=== PATIENT | female | born 2000 | race Caucasian/White ===

== ENCOUNTER 2018-07-23 22:16 | Emergency (ER) | payer MEDICAID ==
[2018-07-23] MEDS ORDERED: NORMAL SALINE 1000 ML 1,000 ML IV ONE ×2 (22:47→23:32)
--- NOTE | 2018-07-23 22:53 | ER Document Report ---
ED General - General Chief Complaint: Vaginal Bleeding Stated Complaint: HEAVY VAGINAL BLEEDING Time Seen by Provider: 07/23/18 22:47 Notes: Patient is a 18-year-old female presents with complaint of heavy vaginal bleeding. At the end of June she had a positive test. She says about 2 weeks ago she had some bleeding. She said that stopped. Since then she has had some mild intermittent bleeding. She never saw an OB doctor. She assumed that she had a miscarriage. Today around 2 PM start having heavy bleeding it became much worse and start having some crampy pain. She then started to feel very lightheaded and dizzy and passed out. Upon arrival in triage she is tachycardic and hypotensive. She denies any chronic medical problems. No other complaints at this time. TRAVEL OUTSIDE OF THE [place] IN LAST 30 DAYS: No - Related Data Allergies/Adverse Reactions: No Known Allergies Allergy (Verified 07/24/18 03:18) Past Medical History - Social History Smoking Status: Never Smoker Frequency of alcohol use: None Drug Abuse: None Family History: Reviewed & Not Pertinent Past Surgical History: Reports: Hx Orthopedic Surgery - L foot sx - Immunizations Immunizations up to date: Yes Review of Systems - Review of Systems Notes: My Normal Review Basic REVIEW OF SYSTEMS: CONSTITUTIONAL : Denies fever, chills, or sweats. Denies recent illness. GASTROINTESTINAL: Lower abdominal cramping.. Denies nausea, vomiting, or diarrhea. FEMALE GENITOURINARY: Vaginal bleeding. Recent positive test MUSCULOSKELETAL: Denies neck or back pain or joint pain or swelling. SKIN: Denies rash or skin lesions. HEMATOLOGIC : Denies easy bruising or bleeding. NEUROLOGICAL: Syncopal episode. Denies headache. Denies weakness or paralysis or loss of use of either side. Denies problems with gait or speech. Denies sensory or motor loss. ALL OTHER SYSTEMS REVIEWED AND NEGATIVE. Physical Exam - Vital signs Vitals: Resp BP Pulse Ox 15 108/72 100 07/23/18 22:40 07/23/18 22:40 07/23/18 22:40 - Notes Notes: General Appearance: Well nourished, alert, cooperative, no acute distress, no obvious discomfort. Slightly pale appearing. Vitals: reviewed, See vital signs table. Eyes: PERRL, EOMI, Conjuctiva clear Mouth: No decreasd moisture Lungs: No wheezing, No rales, No rhonci, No accessory muscle use, good air exchange bilaterally. Heart: Tachycardic rate, Regular rythm, No murmur, no rub Abdomen: Normal BS, soft, No rigidity, No abdominal tenderness, No guarding, no rebound, no abdominal masses, no organomegaly Pelvic exam: Pelvic exam performed with ABIMAEL Lechuga at bedside. Patient had moderate amount of blood in vaginal vault. No clots in cervical office. Cervical os appears open. Extremities: strength 5/5 in all extremities, good pulses in all extremities, no swelling or tenderness in the extremities, no edema. Skin: warm, dry, appropriate color, no rash Neuro: speech clear, oriented x 3, normal affect, responds appropriately to questions. Course - Re-evaluation Re-evalutation: 07/23/18 22:57 We immediately started IV fluid bolus. Patient's had about 250 mL's in her heart rate is already improved and her blood pressure is normalized. She still feels weak. I did do a quick bedside FAST exam. I see no evidence of free fluid in the abdomen. Pelvic exam showed moderate blood which was able to suction. I do not see any further bleeding after white blood was in the vaginal vault was suctioned out. I have personally requested to do a portable bedside ultrasound. I have ordered hCG. I have ordered type and screen for blood in case she does require blood transfusion. 07/23/18 23:31 On reevaluation patient is feeling some better. Still some slight tachycardia. She says that her bleeding appears to have stopped now but she feels as if she might start bleeding again. Ultrasound was just performed and waiting for the results of this. I will give her another liter of fluids. 07/24/18 00:45 On reevaluation patient continues to feel better. She has not had any further vaginal bleeding. I will repeat hCG just to make sure that her hemoglobin is not dropping of a rapid rate. Vital signs remained stable. Current heart rate is 87. Blood pressure is 105/64. 07/24/18 01:54 Patient continues to feel improved. She continues to 90 for the pain. She denies any further bleeding. I did do repeat hemoglobin because is concerned t hat the initial hemoglobin was not really healthcare sales representative of where her level would be based on the rapid onset of heavy bleeding that she had today. Her repeat hemoglobin is low. I will give her 2 units of blood. Currently she clinically looks well. Blood pressure is systolically in the 90s. Heart rate is right around 100. 07/24/18 06:19 I did discuss the case with Dr. Rosado, director of sports medicine municipal bond trader. He said that if the patient remains stable she can be discharged and then to have her go [facility]. He said she does not need an appointment and said to just have her show up so that they can examine her and evaluate her. 07/24/18 06:48 Patient is currently receiving her second unit of blood. She says she is feeling better and when she is lying flat her heart rate is normal. I did have her stand up. She initially stood up her heart rate went into the 120s. I will write for a repeat hemoglobin after the second unit is done infusing. If the patient is still becoming tachycardic when she stands or if hemoglobin is not above 8 then we will reconsult LAND MANAGEMENT SUPERVISOR. If she is no longer tachycardic upon standing and she feels well and her hemoglobin is above 8 then we will continue with plan to discharge to follow-up at the [facility] today. I have explained to the patient is agreeable to. I will check on the patient to Dr. Vitale to follow-up on the CBC results and to recheck her after blood transfusion is performed. Dictation of this chart was performed using voice recognition software; therefore, there may be some unintended grammatical errors. - Vital Signs Vital signs: Temp Pulse Resp BP Pulse Ox 98.2 F 19 111/75 100 07/24/18 06:00 07/24/18 06:00 07/24/18 06:00 07/24/18 06:00 - Laboratory Result Diagrams: 07/24/18 01:20 07/23/18 22:35 Laboratory results interpreted by me: 07/23/18 07/23/18 07/23/18 22:35 22:35 22:35 WBC 13.1 H RBC 3.67 L Hgb 10.1 L Hct 29.9 L RDW 15.4 H Absolute Neutrophils 9.2 H Sodium 135.9 L Carbon Dioxide 19 L Glucose 122 H Beta HCG, Quant 8154.60 H Crossmatch See Detail 07/24/18 01:20 WBC RBC 2.54 L Hgb 7.0 L D Hct 20.9 L RDW 15.2 H Absolute Neutrophils Sodium Carbon Dioxide Glucose Beta HCG, Quant Crossmatch Discharge - Discharge Clinical Impression: Vaginal bleeding during Anemia Qualifiers: Anemia type: unspecified type Qualified Code(s): D64.9 - Anemia, unspecified Condition: Good Disposition: HOME, SELF-CARE Additional Instructions: Your red blood cell count was low due to the significant amount of bleeding that you had. Your vital signs are much improved and we have given you 2 units of blood. We are glad that you are looking better; however, you still need close follow-up. I did discuss your case with the director of sports medicine, Dr. Rosado, who wants you to go to the office at the [facility] today and they will reevaluate you. He says you do not need an appointment. He said to just show up there and they will reevaluate you. The number and address for the [facility] is under the name Dr. Suresh Rosado on your discharge paperwork. Please have a very low threshold to return to the ER immediately if you have recurrent heavy bleeding, lightheadedness or dizziness, abdominal pain, or feel unwell. As discussed with you, I suspect that you most likely are having a miscarriage and that is why you had heavy bleeding. We cannot 100% rule out ectopic however this is less likely being that your pain is now well controlled and your ultrasound shows no evidence of ectopic . It is still very important that you do return to the ER if you do have recurring pain or heavy bleeding. Referrals: SURESH ROSADO MD [ACTIVE STAFF] - 07/24/18
[2018-07-23 23:21] LABS: INTERNATIONAL RATION (INR) 1.01; PROTHROMBIN TIME 13.8 SEC (11.4-15.4)
[2018-07-23 23:22] LABS: PARTIAL THROMBOPLASTIN TIME 30.3 SEC (23.5-35.8)
[2018-07-23 23:24] LABS: ABSOLUTE LYMPHOCYTES (AUTO) 2.6 10^3/uL (0.5-4.7); ABSOLUTE MONOCYTES (AUTO) 1.2 10^3/uL (0.1-1.4); ABSOLUTE NEUT (AUTO) 9.2 10^3/uL (1.7-8.2); BASOPHILS % (AUTO) 0.2 % (0-2); EOSINOPHILS % (AUTO) 0.2 % (0-6); HEMATOCRIT 29.9 % (36.0-47.0); HEMOGLOBIN 10.1 g/dL (12.0-15.5); LYMPHOCYTES % (AUTO) 20.2 % (13-45); MEAN CORPUSCULAR HEMOGLOBIN 27.4 pg (27.0-33.4); MEAN CORPUSCULAR HGB CONC 33.7 g/dL (32.0-36.0); MEAN CORPUSCULAR VOLUME 82 fl (80-97); MONOCYTES % (AUTO) 8.8 % (3-13); PLATELET COUNT 338 10^3/uL (150-450); RED BLOOD COUNT 3.67 10^6/uL (3.72-5.28); RED CELL DISTRIBUTION WIDTH 15.4 % (11.5-14.0); SEGMENTED NEUTROPHILS % (AUTO) 70.6 % (42-78); TOTAL CELLS COUNTED % (AUTO) 100 %; WHITE BLOOD COUNT 13.1 10^3/uL (4.0-10.5)
[2018-07-23 23:25] LABS: ANION GAP 16 (5-19); BLOOD UREA NITROGEN 13 mg/dL (7-20); CALCIUM 9.9 mg/dL (8.4-10.2); CARBON DIOXIDE 19 mmol/L (22-30); CHLORIDE 101 mmol/L (98-107); GLUCOSE 122 mg/dL (75-110); POTASSIUM 3.6 mmol/L (3.6-5.0); SODIUM 135.9 mmol/L (137-145)
--- NOTE | 2018-07-23 23:51 | RADIOLOGY REPORT (SQ) ---
EXAM DESCRIPTION: US TRANSVAGINAL COMPLETED DATE/TME: 07/23/2018 22:48 CLINICAL HISTORY: 18 years, Female, heavy vaginal bleeding in COMPARISON:None. TECHNIQUE: Grayscale and Doppler sonogram of the pelvis. Transvaginal technique was used for better evaluation of the pelvic viscera FINDINGS: The uterus measures 10.5 x 6.2 x 7.4 cm. A gestational sac is not visualized. There is heterogeneous material within the lower endometrial and cervical canal. Endometrial stripe: 10 mm Right ovary: not visualized due to intervening bowel gas. Left ovary: Not visualized due to intervening bowel gas. Free fluid: None. IMPRESSION: No intrauterine is identified. There is heterogeneous material within the endometrial canal/cervix which may represent failed .
[2018-07-24 01:39] LABS: ABSOLUTE LYMPHOCYTES (AUTO) 1.1 10^3/uL (0.5-4.7); ABSOLUTE MONOCYTES (AUTO) 0.5 10^3/uL (0.1-1.4); ABSOLUTE NEUT (AUTO) 5.1 10^3/uL (1.7-8.2); BASOPHILS % (AUTO) 0.3 % (0-2); EOSINOPHILS % (AUTO) 0.3 % (0-6); HEMATOCRIT 20.9 % (36.0-47.0); MEAN CORPUSCULAR HEMOGLOBIN 27.4 pg (27.0-33.4); MEAN CORPUSCULAR HGB CONC 33.4 g/dL (32.0-36.0); MEAN CORPUSCULAR VOLUME 82 fl (80-97); MONOCYTES % (AUTO) 8.1 % (3-13); PLATELET COUNT 188 10^3/uL (150-450); RED BLOOD COUNT 2.54 10^6/uL (3.72-5.28); RED CELL DISTRIBUTION WIDTH 15.2 % (11.5-14.0); SEGMENTED NEUTROPHILS % (AUTO) 75.3 % (42-78); TOTAL CELLS COUNTED % (AUTO) 100 %; WHITE BLOOD COUNT 6.7 10^3/uL (4.0-10.5)
[2018-07-24] MEDS ORDERED: NORMAL SALINE 250 ML IV PRN (01:53)
[2018-07-24 10:45] LABS: ABSOLUTE EOSINOPHILS # (AUTO) 0.1 10^3/uL (0.0-0.6); ABSOLUTE MONOCYTES (AUTO) 0.4 10^3/uL (0.1-1.4); ABSOLUTE NEUT (AUTO) 4.8 10^3/uL (1.7-8.2); BASOPHILS % (AUTO) 0.6 % (0-2); HEMATOCRIT 29.7 % (36.0-47.0); MEAN CORPUSCULAR HEMOGLOBIN 28.8 pg (27.0-33.4); MEAN CORPUSCULAR HGB CONC 34.1 g/dL (32.0-36.0); MEAN CORPUSCULAR VOLUME 85 fl (80-97); MONOCYTES % (AUTO) 6.9 % (3-13); PLATELET COUNT 214 10^3/uL (150-450); RED BLOOD COUNT 3.51 10^6/uL (3.72-5.28); RED CELL DISTRIBUTION WIDTH 15.5 % (11.5-14.0); SEGMENTED NEUTROPHILS % (AUTO) 75.5 % (42-78); TOTAL CELLS COUNTED % (AUTO) 100 %; WHITE BLOOD COUNT 6.4 10^3/uL (4.0-10.5)
[2018-07-24 10:49] LABS: HEMOGLOBIN 10.1 g/dL (12.0-15.5)
--- NOTE | 2018-07-24 10:59 | ER Document Report ---
Doctor's Note Notes: 07/24/18 10:58 Patient's hemoglobin after the blood transfusion is 10.1, so she will be discharged to follow-up at [facility] today.
[2018-07-24 11:39] VITALS: BP 119/71
== END 2018-07-24 12:00 | disposition home or self-care (01) ==
LOC: ER 22:16
DX: O20.9 Hemorrhage in early pregnancy, unspecified (principal); D64.9 Anemia, unspecified; R53.1 Weakness; R00.0 Tachycardia, unspecified
CPT/HCPCS: 99284; 96360; 96361; 86900; 86901; 36415; 36430; 86850; 84702; 85025; 85610; 85730; 80048; 86920; 76817; 93976; P9016; J7030

== ENCOUNTER 2018-07-24 15:06 | Observation (INO) | payer MEDICAID ==
[~2018-07-24 15:06] MED LIST: DEXAMETHASONE SOD PHOSPHATE INJ 4 MG/1 ML VIAL ONE; METOCLOPRAMIDE HCL INJ/PF 10 MG/2 ML SDV ONE; ONDANSETRON HCL INJ/PF 4 MG/2 ML SDV ONE
[2018-07-24] MEDS ORDERED: LIDOCAINE 2% INJ-PF (100 MG/5 ML) SYRINGE ONE (16:22)
[2018-07-24] MEDS ORDERED: MIDAZOLAM 2 MG/2 ML INJ ONE (16:23)
[2018-07-24] MEDS ORDERED: ACETAMINOPHEN 1,000 MG/100 ML RTUPB IV ONE (16:23)
[2018-07-24] MEDS ORDERED: PROPOFOL INJ 200 MG/20 ML VIAL IV ONE (16:23)
[2018-07-24] MEDS ORDERED: FENTANYL CITRATE INJ/PF 100 MCG/2 ML AMPUL ONE (16:23)
[2018-07-24] MEDS ORDERED: NORMAL SALINE 1000 ML 1,000 ML IV PRN (16:25)
[2018-07-24 16:58] LABS: HEMOGLOBIN 9.9 g/dL (12.0-15.5); MEAN CORPUSCULAR HEMOGLOBIN 28.8 pg (27.0-33.4); MEAN CORPUSCULAR VOLUME 85 fl (80-97); PLATELET COUNT 218 10^3/uL (150-450); RED BLOOD COUNT 3.42 10^6/uL (3.72-5.28); RED CELL DISTRIBUTION WIDTH 15.5 % (11.5-14.0); WHITE BLOOD COUNT 6.6 10^3/uL (4.0-10.5)
[2018-07-24] MEDS ORDERED: DOXYCYCLINE HYCLATE 100 MG in DEXTROSE 5%-WATER 250 ML IV ONE (17:20)
[2018-07-24] MEDS ORDERED: IRON SUCROSE COMPLEX INJ/PF 100 MG/5 ML SDV IV ONE (17:20)
[2018-07-24] MEDS ORDERED: MEPERIDINE HCL/PF INJ 25 MG/1 ML DISP.SYRIN IV PRN (17:43)
[2018-07-24] MEDS ORDERED: ONDANSETRON HCL INJ/PF 4 MG/2 ML SDV IV PRN ×2 (17:43→18:17)
[2018-07-24] MEDS ORDERED: DIPHENHYDRAMINE HCL 50 MG/ML VIAL IV PRN (17:43)
[2018-07-24] MEDS ORDERED: FENTANYL CITRATE INJ/PF 100 MCG/2 ML AMPUL IV PRN ×3 (17:43)
[2018-07-24] MEDS ORDERED: OXYCODONE-ACETAMINOPHEN 5-325 MG TABLET PO PRN (17:43)
[2018-07-24] MEDS ORDERED: PROMETHAZINE HCL INJ 25 MG/1 ML VIAL IV PRN ×2 (17:43)
--- NOTE | 2018-07-24 17:56 | Operative Report ---
Operative Report DATE OF SURGERY: 07/24/18 PREOPERATIVE DIAGNOSIS: 1. Incomplete at 8 weeks. 2. Anemia POSTOPERATIVE DIAGNOSIS: Same OPERATION: Suction dilatation and curettage SURGEON: DALY POE ANESTHESIA: Moderate Sedation TISSUE REMOVED OR ALTERED: Products of conception COMPLICATIONS: None ESTIMATED BLOOD LOSS: 100 ml INTRAOPERATIVE FINDINGS: Uterus sounded 8 cm; cervix already dilated 3 cm; used 10 mm curved [place] curette; minimal amounts of products of conception PROCEDURE: The patient was taken to the Operating Room where general anesthesia was obtained without difficulty. She was prepped and draped in the normal sterile fashion in the dorsal lithotomy position. Exam under anesthesia was performed and noted above. A speculum was placed in the vagina. The anterior cervix was grasped with a single-tooth tenaculum and the uterus sounded to 8 cm. The cervix was noted to be dilated approximately 3 cm at the beginning of the procedure. The 10 mm curved suction curet was gently advanced in the usual fashion and good return of tissue. The suction device was then activated and the curet rotated to clear the uterus of the products of conception. A sharp curettage was then performed. The suction device was then gently reintroduced and activated and the curet rotated to clear the uterus of conception which was loosened with recent sharp curettage. The sharp curettage was then performed again until a gritty texture was noted and the cavity was felt to be empty of further tissue. At this time there was minimal bleeding noted from the cervix. All instruments were removed from the patient's cervix and vagina. Hemostasis was noted at the tenaculum site. Sponge, lap, and instrument counts are correct 2. Doxycycline 100 mg IV was given perioperatively. Cytotec 800 mcg per rectum was given at the end of the procedure. The patient tolerated the procedure well and was taken to the recovery area awake and in stable condition.
[2018-07-24] MEDS ORDERED: KETOROLAC TROMETHAMINE INJ/PF 30 MG/1 ML SDV IV PRN (18:18)
--- NOTE | 2018-07-24 20:08 | PDOC DISCHARGE SUMMARY ---
General - Admit/Disc Date/PCP Admission Date/Primary Care Provider: 07/24/18 15:06 Discharge Date: 07/24/18 - Discharge Diagnosis (1) Incomplete Is this a current diagnosis for this admission?: Yes (2) Anemia Is this a current diagnosis for this admission?: Yes - Additional Information Resuscitation Status: Full Code Discharge Diet: As Tolerated Home Medications: No Home Medications 1 01/13/12 Ondansetron [Zofran Odt 4 mg Tablet] 1 tab PO Q6H PRN #10 tab.rapdis 01/13/12 Cephalexin Monohydrate [Keflex 500 mg Capsule] 500 mg PO QID #20 capsule 01/06/13 History of Present Illness Patient complains of: Heavy vaginal bleeding History of Present Illness: HAY MORALES is a 18 year old female presented to the office today complaining of heavy vaginal bleeding. Patient was seen in the emergency department earlier this morning and received 2 units of packed red blood cells. Patient had a home confirmed tests, which placed her at approximately 8 weeks. Hospital Course Hospital Course: Patient was taken to the operating suite where a suction dilatation and curettage was performed without difficulty. She tolerated the procedure well. She received IV iron, postoperatively. She is Rh positive, therefore she did not require RhoGam Physical Exam - Physical Exam Vital Signs: Temp Pulse Resp BP Pulse Ox 98.1 F 75 18 118/61 100 07/24/18 19:32 07/24/18 19:32 07/24/18 19:32 07/24/18 19:32 07/24/18 19:32 Intake & Output 07/23/18 07/24/18 07/25/18 06:59 06:59 06:59 Intake Total 1000 Output Total 220 Balance 780 Weight 88.81 kg General appearance: PRESENT: no acute distress Respiratory exam: PRESENT: clear to auscultation yaquelin Cardiovascular exam: PRESENT: RRR GI/Abdominal exam: PRESENT: normal bowel sounds, soft Extremities exam: ABSENT: calf tenderness, clubbing, full ROM, joint swelling, pedal edema, tenderness, +1 edema, +2 edema, other Result Laboratory Results: 07/24/18 16:12 07/24/18 07/24/18 07/24/18 16:12 16:25 17:30 WBC 6.6 RBC 3.42 L Hgb 9.9 L Hct 29.0 L MCV 85 MCH 28.8 MCHC 34.0 RDW 15.5 H Plt Count 218 Blood Type Cancelled O POSITIVE Antibody Screen Cancelled NEGATIVE Plan Discharge Plan: 1. Discharge home 2. Follow-up in the office in 2 weeks for postoperative exam Time Spent: Greater than 30 Minutes
[2018-07-24 20:45] VITALS: BP 119/59
== END 2018-07-25 00:04 | disposition home or self-care (01) ==
LOC: 2N 15:06
PROVIDERS: ADMIT Specialist; ATTEND Specialist
PROC: 10D17Z9 Manual Extraction of Products of Conception, Retained, Via Natural or Artificial Opening (ICD-10-PCS; principal; 2018-07-24 16:00)
DX: O03.39 Incomplete spontaneous abortion with other complications (principal); D64.9 Anemia, unspecified; Z67.90 Unspecified blood type, Rh positive
CPT/HCPCS: 86900; 86901; 36415; 86850; 85027; 88305 ×2; 59812; J2250; J1756; J1100; J3010; J2001; J2765; J2405; J2704; J0131; 1965

== ENCOUNTER 2018-10-26 22:05 | Emergency (ER) | payer MEDICAID | END 2018-10-26 23:48 | disposition left against medical advice (07) | LOC: ER 22:05 | DX: Z53.21 Procedure and treatment not carried out due to patient leaving prior to being seen by health care provider (principal) ==